=== PATIENT | female | born 1985 | race Caucasian/White ===

== ENCOUNTER → 2017-08-17 14:47 | Outpatient (CLI) | payer OTHER, SELFPAY ==
[2017-08-17 15:40] LABS: Appearance Urine UA CLEAR; Bilirubin Urine UA NEGATIVE (NEGATIVE); Color Urine UA YELLOW; Glucose Urine UA NEGATIVE (Normal); Ketones Urine UA NEGATIVE (NEGATIVE); Leukocyte Esterase Urine UA NEGATIVE (NEGATIVE); Nitrite Urine UA Negative (Negative); Occult Blood Urine UA NEGATIVE (Negative); Protein Urine UA NEGATIVE (Negative); Urobilinogen Urine UA 0.2 E.U./dL (0.2); pH Urine UA 6.5 (4.5-8.0)
[2017-08-17 15:41] LABS: Add Manual Diff / Slide Review NO; Basophils Percent Auto 0.7 % (0-2); Eosinophils Percent Auto 2.2 % (2-4); Hematocrit 41.2 % (36-46); Hemoglobin 14.3 g/dL (12.0-16.0); Lymphocytes Percent Auto 24.3 % (25-40); Mean Corpuscular HGB Conc 34.7 % (30-36); Mean Corpuscular Volume 92.2 fL (80-100); Monocytes Percent Auto 6.4 % (3-14); Neutrophils Absolute Auto 7000 /uL (3000-5900); Neutrophils Percent Auto 66.4 % (50-75); Platelet Count 245 X10^3/uL (150-400); Red Blood Cell Count 4.47 X10^6/uL (4.0-5.2); Red Cell Distribution Width 12.7 % (11.6-14.8); White Blood Cell Count 10.5 X10^3/uL (4.5-11.0)
[2017-08-17 16:43] LABS: Hepatitis B Surface Antigen NEGATIVE s/c (NEGATIVE); Rubella Antibody IgG 80.2 IU/mL (>15)
[2017-08-17 17:04] LABS: HIV 1 and 2 Antibody NEGATIVE (NEGATIVE); Hep C Virus Ab w/Reflex Quant NEGATIVE s/c (NEGATIVE)
[2017-08-21 15:33] LABS: HSV 2 IGG AB < 0.90 index (< 0.90); HSV1IGG < 0.90 index (< 0.90)
[2017-08-24 13:58] LABS: Rapid Plasma Reagin NON-REACTIVE
== END ==
PROVIDERS: Visit Provider Specialist
DX: Z34.01 Encounter for supervision of normal first pregnancy, first trimester (principal)
CPT/HCPCS: 36415; 80055; 81003; 86695; 86696; 86703; 86787; 86803; 86850; 86900; 86901; 87086

== ENCOUNTER → 2017-10-01 08:27 | Outpatient (CLI) | payer OTHER, SELFPAY | PROVIDERS: Visit Provider Specialist | DX: Z34.81 Encounter for supervision of other normal pregnancy, first trimester (principal); Z3A.12 12 weeks gestation of pregnancy | CPT/HCPCS: 36415 ==

== ENCOUNTER → 2017-11-02 08:58 | Outpatient (CLI) | payer OTHER, SELFPAY ==
[2017-11-15 09:29] LABS: AFP, Serum 52.8 ng/mL; Calc Gestational Age 16.6; Est Date Determined by NOT GIVEN; Maternal Weight 136 lbs; Mother Ethnic Origin NOT GIVEN; Number of Fetuses 1; Prev Pregnancies Down Syndrome N
== END ==
PROVIDERS: Visit Provider Specialist
DX: Z3A.16 16 weeks gestation of pregnancy (principal)
CPT/HCPCS: 36415; 82105

== ENCOUNTER → 2017-11-29 08:09 | Outpatient (CLI) | payer OTHER, SELFPAY ==
--- NOTE | 2017-11-29 08:10 | DI.US.S_ITS ---
PROCEDURE: US OB >= 14 WEEKS FETUS INDICATIONS: 20 WEEK ANATOMIC SURVEY OUTSIDE/PRIOR DATING DATA: Last menstrual period (LMP): 07/09/17. LMP-based estimated date of delivery (MERISSA): 04/15/18. First dating scan (date and location): 08/29/17. Estimated date of delivery (MERISSA) from first dating scan: 04/14/18. TECHNIQUE: Real-time scanning was performed of the fetus, with image documentation and biometric measurements. Endovaginal scanning: No COMPARISON: [facility], , OB >= 14 WEEKS FETUS, 08/29/2017, 8:22. FINDINGS: General: A single living intrauterine gestation is present. Presentation: Vertex. Placenta: Placental position is anterior, without previa. Amniotic fluid index: 15.3cm, normal range is 5-24 cm. heart rate: 132 beats per minute. Maternal cervical canal: 3.1 cm long. biometrics: Biparietal diameter: 21 weeks 2 days Head circumference: 21 weeks 6 days Abdominal circumference: 21 weeks 4 days Femur length: 21 weeks 3 days Estimated gestational age from initial scan: 20 weeks 4 days Composite gestational age from present scan: 21 weeks 4 days Estimated weight and percentile: 430 g; 90 percentile Measurement variability for biometric dating: +/- 7 days from 14 weeks to 15 weeks 6 days gestation, +/- 10 days from 16 weeks to 21 weeks 6 days gestation, +/- 2 weeks from 22 weeks to 27 weeks 6 days gestation, +/- 3 weeks for 28 weeks gestation or later. weight reference: 4500 g or EFW >90/95% is considered macrosomia or large for gestational age. EFW <10% is small for gestational age. EFW 5% or less is considered intra-uterine growth restriction. Anatomic survey: Neuro: Ventricles are non-dilated at less than 10 mm. Cisterna magna is normal at 3-11 mm. Cerebellum is normal in size and morphology. Nuchal skin fold: Normal at less than 6 mm between 14-21 weeks gestational age. Face: Nose and lips, facial profile are normal. Spine: No evidence for spina bifida. Heart: 4-chambered heart is present, with normal ventricular outflow tracts. Diaphragm: Diaphragm is intact. Stomach: Left-sided stomach is present. Kidneys: No hydronephrosis. Normal is less than 5 mm in 2nd trimester, less than 7 mm in 3rd trimester. Cord: 3-vessel cord has orthotopic insertion. Bladder: Normal in size. Extremities: All 4 extremities identified. IMPRESSION: 1. Interval growth upper limits of normal. 2. Normal anatomic survey. Dictated by: Timothy Freire [facility] Interpreted: Partha Jones MD on 11/29/2017 at 9:04 Approved by: Partha Jones M.D. on 11/29/2017 at 13:19
== END ==
PROVIDERS: Visit Provider Specialist
DX: Z36.89 Encounter for other specified antenatal screening (principal); Z3A.21 21 weeks gestation of pregnancy
CPT/HCPCS: 76811

== ENCOUNTER → 2018-01-21 12:01 | Outpatient (CLI) | payer OTHER, SELFPAY ==
[2018-01-21 15:06] LABS: Hematocrit 37.8 % (36-46); Hemoglobin 12.7 g/dL (12.0-16.0)
[2018-01-21 15:33] LABS: GTT (PREG) 1 Hour PP 50gm Dose 184 mg/dL (76-139)
== END ==
PROVIDERS: Visit Provider Specialist
DX: O09.899 Supervision of other high risk pregnancies, unspecified trimester (principal); Z3A.27 27 weeks gestation of pregnancy; Z67.91 Unspecified blood type, Rh negative
CPT/HCPCS: 36415; 82950; 85014; 85018; 86850

== ENCOUNTER → 2018-01-28 07:37 | Outpatient (CLI) | payer OTHER, SELFPAY ==
[2018-01-28 08:36] LABS: Glucose Fasting 75 mg/dL (70-100)
[2018-01-28 10:59] LABS: Glucose 2 Hour 141 mg/dL (70-140)
[2018-01-28 11:02] LABS: Glucose Tol Interpretation INTERPRETATION
[2018-01-28 12:42] LABS: Glucose 3 Hour 119 mg/dL (70-115)
[2018-01-28 21:05] LABS: Glucose 1 Hour 179 mg/dL (70-170)
== END ==
PROVIDERS: Visit Provider Specialist
DX: R73.09 Other abnormal glucose (principal)
CPT/HCPCS: 36415; 82951; 82952

== ENCOUNTER → 2018-03-22 10:15 | Outpatient (CLI) | payer OTHER, SELFPAY ==
[2018-03-23 09:20] LABS: Strep Grp B PCR NEG for Grp B Strep
== END ==
PROVIDERS: Visit Provider Specialist
DX: Z3A.36 36 weeks gestation of pregnancy (principal)
CPT/HCPCS: 87653

== ENCOUNTER 2018-04-15 13:17 | Outpatient (CLI) | payer OTHER, SELFPAY | END 2018-04-15 13:55 | disposition home or self-care (01) | LOC: LABOR 13:41 → OB 04-17 12:54 | PROVIDERS: Visit Provider Specialist | DX: Z34.03 Encounter for supervision of normal first pregnancy, third trimester (principal); Z3A.40 40 weeks gestation of pregnancy | CPT/HCPCS: 59025; G0378; G0379 ==

== ENCOUNTER 2018-04-18 18:42 | Inpatient (IN) | payer OTHER, SELFPAY ==
[2018-04-18 20:38] VITALS: BP 123/85
[2018-04-18] MEDS: DINOPROSTONE VAG (CERVIDIL) 10 MG VAG (21:00)
[2018-04-18 23:49] LABS: Add Manual Diff / Slide Review NO; Basophils Absolute Auto 100 /uL (0-100); Basophils Percent Auto 0.5 % (0-2); Eosinophils Absolute Auto 200 /uL (0-450); Eosinophils Percent Auto 1.2 % (2-4); Hematocrit 39.7 % (36-46); Hemoglobin 13.1 g/dL (12.0-16.0); Lymphocytes Absolute Auto 2200 /uL (1100-4500); Lymphocytes Percent Auto 14.6 % (25-40); Mean Corpuscular Hemoglobin 30.4 PG (26-34); Mean Corpuscular Volume 92.1 fL (80-100); Monocytes Absolute Auto 1000 /uL (0-900); Monocytes Percent Auto 6.8 % (3-14); Neutrophils Absolute Auto 11700 /uL (1500-7000); Neutrophils Percent Auto 76.9 % (50-75); Platelet Count 219 X10^3/uL (150-400); Red Blood Cell Count 4.31 X10^6/uL (4.0-5.2); Red Cell Distribution Width 13.4 % (11.6-14.8); White Blood Cell Count 15.2 X10^3/uL (4.5-11.0)
--- NOTE | 2018-04-19 07:10 | PM.OBHP.1 ---
OB HPI Date/Time Date of admission: 04/18/18 Date Patient Seen: 04/19/18 Time Patient Seen: 07:11 History of Present Condition Chief complaint: OBSERVATION : 1 Para: 0 Estimated Date of Delivery: 04/15/18 Estimated Gestational Age (weeks): 40 Narrative: Candie Newberry is a 32 year old female admitted for postdates induction Indications Indication for induction OB: post dates History of Present care: good care, initiated at week # (7), number of visits (14) and pounds weight gain (24) Dating criteria: LMP confirmed by 1st trimester US Ultrasounds: normal mid trimester US Obstetrical complications: none Medical complications: none Preadmission Labs Blood type: 0 (-) negative -: Antibody screen: negative, GBS status: negative, HBsAG: negative, HIV: negative, HSV 1: negative, HSV 2: negative and RPR/VDLR: negative -: Chlamydia screen: not detected and Gonorrhea screen: not detected -: Rubella: immune and Varicella: immune HCAB: negative PAP: Normal Cell-free DNA: Normal 1 hr GTT: 184 3 hr GTT: 1 hr (179), 2 hr (141) and 3 hr (119) Fasting blood glucose: 75 Evaluation Evaluation Baseline heart rate: 145 Variability: Moderate (11-25) monitor accelerations: Present monitor decelerations: Absent Contraction Frequency (minutes): 3 Uterine Contraction Intensity: Mild Category of Tracing: I Cervical dilation (cm): 1 Cervical effacement (%): 50 station: -1 Laboratory results: Laboratory Tests 04/18/18 04/18/18 21:00 21:00 WBC 15.2 H RBC 4.31 Hgb 13.1 Hct 39.7 MCV 92.1 MCH 30.4 MCHC 33.0 RDW 13.4 Plt Count 219 Neut % (Auto) 76.9 H Lymph % (Auto) 14.6 L [place] % (Auto) 6.8 Eos % (Auto) 1.2 L Baso % (Auto) 0.5 Neut # (Auto) 17236 H Lymph # (Auto) 2200 [place] # (Auto) 1000 H Eos # (Auto) 200 Baso # (Auto) 100 Blood Type O Negative Antibody Screen Negative PFSH Surgical History Anesthesia (Resolved) History of third molar tooth extraction (~2002) Family History Mother Age: 65 Hypertension Grandfather Diabetes mellitus Pneumonia Grandfather History of heart attack Grandmother Pneumonia Social History Smoking Status: Never smoker Family History Mother Age: 65 Hypertension Grandfather Diabetes mellitus Pneumonia Grandfather History of heart attack Grandmother Pneumonia Social History Smoking Status: Never smoker Meds Home Medications Medication Instructions Recorded Confirmed Type Mynatal 1 cap PO QDAY #0 04/09/17 04/18/18 History Allergies Allergy/AdvReac Type Severity Reaction Status Date / Time No Known Allergies Allergy Uncoded 04/18/18 23:15 Review of Systems Review of Systems No signs or symptoms of preeclampsia. Good movement. No leaking of fluid. All systems reviewed & are unremarkable except as noted in HPI and below Exam Vital Signs (past 8 hours): Blood pressure 123/85, temperature 98?, pulse of 83 Narrative Exam Narrative: HEENT exam within normal limits. Lungs are clear to auscultation percussion. Heart is regular rate and rhythm no S3-S4 or murmurs. Abdomen is gravid. is vertex. Extremities without edema and nontender. Objective Labs Result Diagrams: 04/18/18 21:00 Labs: Laboratory Results - last 24 hr 04/18/18 04/18/18 21:00 21:00 WBC 15.2 H RBC 4.31 Hgb 13.1 Hct 39.7 MCV 92.1 MCH 30.4 MCHC 33.0 RDW 13.4 Plt Count 219 Neut % (Auto) 76.9 H Lymph % (Auto) 14.6 L [place] % (Auto) 6.8 Eos % (Auto) 1.2 L Baso % (Auto) 0.5 Neut # (Auto) 20689 H Lymph # (Auto) 2200 [place] # (Auto) 1000 H Eos # (Auto) 200 Baso # (Auto) 100 Blood Type O Negative Antibody Screen Negative Assessment and Plan (1) 40 weeks gestation of : Current visit: Yes Status: Acute 40 4/7 weeks by dates admitted for postdates induction. Plan: Patient received Cervidil rather than Cytotec due to uterine irritability. She will be started on Pitocin this morning
[2018-04-19] MEDS: LACTATED RINGERS 1,000 ML 100 ML IV ×3 (08:03→18:36)
[2018-04-19] MEDS: OXYTOCIN PREMIX 30 UNIT/500 ML PLAST..BAG IV (08:28)
[2018-04-20] MEDS: miSOPROStol 200 MCG TABLET 800 MCG PR (00:25)
--- NOTE | 2018-04-20 00:50 | P.PCNOB_ITS ---
Events: Labor Induction (Postdates) Delivery date: 04/20/18 Intrapartal events: Prolonged 2nd Stage > 2.5 hours Cervical ripening method: per Cervidil protocol Induction method: per pitocin protocol Delivery monitor: external FHT and external uterine Route of delivery: L&D Laceration Description: Periurethral - 1st Degree, Perineal - 2nd Degree and Vaginal - 1st Degree Delivery repair: vicryl (3- 0) Estimated blood loss (mL): 300 Anesthesia type: Epidural Narrative: Patient arrived on Labor and delivery for induction for postdates. She received Cervidil followed by Pitocin. She received an epidural catheter for pain control. She had spontaneous rupture membranes clear fluid. She progressed to complete and pushing. heart tones category 1 to category 2 throughout labor. The patient delivered spontaneously, over an intact perineum a viable female infant was placed on the maternal abdomen. After the cord stopped pulsating the cord was clamped and cut and cord bloods obtained. Placenta delivered spontaneously, intact, with 3 vessels. Patient had a first- degree periurethral tear that did not require suturing she had a first-degree right-sided vaginal laceration that was repaired with 3 0 chromic suture. She had a second-degree midline perineal tear that was repaired with 3 0 chromic suture. Patient had continued increased bleeding despite the Pitocin so she was given 100 mg of Cytotec rectally. [place] Baby 1: gender: Female Presentation: compound (Hand next to head) position: Right Occiput Anterior Placenta delivery description: Spontaneous cord vessel description: 3 Vessels score (1 min): 9 score (5 min): 9 Plan for aftercare: Routine care
[2018-04-20] MEDS: DERMOPLAST SPRAY 20% 60 ML 1 SPRAY TOP (02:49)
[2018-04-20] MEDS: IBUPROFEN 600 MG TABLET PO ×4 (02:49→21:58)
[2018-04-20] MEDS: DOCUSATE 250 MG CAPSULE PO (08:53)
--- NOTE | 2018-04-20 18:42 | PM.OBPN.1 ---
Subjective - OB Interval history: day 1. Patient comments: no complaints baby status: nursing well Marcellus feeding status: exclusively breast feeding Narrative: Patient is doing well for 1st day She is breast-feeding. No signs or symptoms of preeclampsia. She is urinating and ambulatory. Date Patient Seen: 04/20/18 Time Patient Seen: 18:43 Exam Vital Signs (past 8 hours): Blood pressure 124/82, pulse of 87, temperature 98.2? Narrative Exam Narrative: Abdomen is soft, nontender. Uterus is firm, at U, nontender. Repair is intact. Lochia is normal. Extremities without edema nontender. Objective Labs Result Diagrams: 04/18/18 21:00 Assessment & Plan (1) 40 weeks gestation of : Status: Acute Current Visit: Yes (2) Vaginal delivery: Problem details: Normal exam Status: Acute Current Visit: Yes Time Spent With Patient Total time spent is greater than 50% in coordination of care (as documented) at patient's floor/unit and/or counseling patient: less than 15 minutes
[2018-04-20 21:58] VITALS: TEMP 36.7
[2018-04-21 04:05] VITALS: TEMP 36.7
[2018-04-21] MEDS: IBUPROFEN 600 MG TABLET PO (04:05)
[2018-04-21 06:19] LABS: Add Manual Diff / Slide Review NO; Basophils Absolute Auto 100 /uL (0-100); Basophils Percent Auto 0.6 % (0-2); Eosinophils Absolute Auto 300 /uL (0-450); Hematocrit 32.8 % (36-46); Hemoglobin 11.2 g/dL (12.0-16.0); Lymphocytes Absolute Auto 2300 /uL (1100-4500); Mean Corpuscular HGB Conc 34.3 % (30-36); Mean Corpuscular Hemoglobin 31.1 PG (26-34); Mean Corpuscular Volume 90.7 fL (80-100); Monocytes Absolute Auto 1100 /uL (0-900); Monocytes Percent Auto 6.8 % (3-14); Neutrophils Absolute Auto 12800 /uL (1500-7000); Neutrophils Percent Auto 76.6 % (50-75); Platelet Count 210 X10^3/uL (150-400); Red Blood Cell Count 3.61 X10^6/uL (4.0-5.2); Red Cell Distribution Width 13.7 % (11.6-14.8); White Blood Cell Count 16.7 X10^3/uL (4.5-11.0)
--- NOTE | 2018-04-21 10:20 | P.DS_ITS ---
Discharge Providers Date of admission: 04/18/18 18:42 Discharge Date: 04/21/18 Consults: 04/20/18 02:21 Consult to Brilliandeer Lopper Routine Comment: Discharge provider: Tia Hernandez MD Summary Date Patient Seen: 04/21/18 Time Patient Seen: 10:16 Procedures: Cervidil followed by Pitocin induction. Epidural catheter. Vaginal delivery with second-degree repair Hospital Course: Patient received Cervidil followed by Pitocin induction for postdates. She had a spontaneous vaginal delivery with repair of second-degree tear. Both and mother did well . She is breast-feeding without difficulty. No signs or symptoms of preeclampsia. She is urinating and ambulating well. Blood pressure 115/66, pulse of 79, temperature 97.6? Patient's abdomen is soft, nontender. Uterus is firm, at U, nontender. Repair is intact. Mild lochia. Extremities without edema nontender. Baby is Rh negative. She is rubella immune. Peripartum Data Infant Delivery Method: Natural Vaginal Laceration description: Perineal - 2nd Degree Procedures: Cervidil and Pitocin induction. Epidural catheter, spontaneous vaginal delivery with repair a second-degree tear complications: none Discharge Diagnosis (1) 40 weeks gestation of : Status: Acute (2) Vaginal delivery: Status: Acute Problem Details: Normal exam Time Spent with Patient Total time spent providing and/or coordinating discharge services: Objective Labs Result Diagrams: 04/21/18 06:00 Labs: Laboratory Results - last 24 hr 04/21/18 06:00 WBC 16.7 H RBC 3.61 L Hgb 11.2 L Hct 32.8 L MCV 90.7 MCH 31.1 MCHC 34.3 RDW 13.7 Plt Count 210 Neut % (Auto) 76.6 H Lymph % (Auto) 14.0 L [place] % (Auto) 6.8 Eos % (Auto) 2.0 Baso % (Auto) 0.6 Neut # (Auto) 79604 H Lymph # (Auto) 2300 [place] # (Auto) 1100 H Eos # (Auto) 300 Baso # (Auto) 100 Discharge Plan Discharge Plan Patient Disposition: Home Discharge Med Rec/Prescriptions Prescriptions: Continued Mynatal 1 EACH capsule 1 cap PO QDAY Qty: 0 RF: 0 Follow up/Referrals: Tia Hernandez MD [Physician] - 1 Month Provider Discharge Instructions Diet: Regular Activity: Nothing in vagina for 4 weeks Skin/Wound/Dressing Care Report to your healthcare provider any signs of infection, such as:: chills, fever and increased pain Discharge Data Attending Provider: Tia Hernandez Admit Date/Time: 04/18/18 18:42
[2018-04-21 10:23] VITALS: BP 123/85; PULSE 88; RESP 18; TEMP 36.7
== END 2018-04-21 13:00 | disposition home or self-care (01) | DRG 807 ==
PROVIDERS: Admitting Provider Specialist; Visit Provider Specialist
DX: O48.0 Post-term pregnancy (principal); Z37.0 Single live birth; O70.0 First degree perineal laceration during delivery; Z3A.40 40 weeks gestation of pregnancy; O63.1 Prolonged second stage (of labor)
CPT/HCPCS: 01967; 36415; 59050; 59200; 59400; 85025; 86850; 86900; 86901; G0379; J2590; S0191

== ENCOUNTER → 2020-09-14 13:08 | Outpatient (CLI) | payer OTHER, SELFPAY ==
--- NOTE | 2020-09-14 13:10 | DI.US.S_ITS ---
PROCEDURE: US PELVIC COMPLETE INDICATIONS: CHECK INTRAUTERINE DEVICE PLACEMENT TECHNIQUE: Real-time scanning was performed of the pelvic organs, with image documentation. Additional endovaginal scanning was necessary due to incomplete visualization of the adnexal and endometrial structures by transabdominal scanning. COMPARISON: None. FINDINGS: Uterus: Uterus is normal in size at 7.9 x 6.0 x 4.4 cm. The endometrium measures 4.6 mm in combined thickness. Left fundal intramural fibroid measuring 1 1.3 cm. IUD in expected position. Ovaries: Right ovary measures 2.7 x 2.5 x 1.1 cm and the left 3.3 x 2.5 x 2.2 cm. Probable hemorrhagic left ovarian cyst measuring 2.6 x 2.0 cm. Other: No pathologic free abdominal or pelvic fluid. IMPRESSION: 1. Small left hemorrhagic ovarian cyst. 2. 13 mm intramural fibroid. 3. Intrauterine device in expected position. Dictated by: Timothy CAUSEY Interpreted: Partha Jones MD on 09/14/2020 at 14:58 Transcribed by: RADHA on 09/14/2020 at 15:01 Approved by: Partha Jones M.D. on 09/14/2020 at 16:36
== END ==
PROVIDERS: Referring Provider Specialist; Visit Provider Specialist
DX: N93.9 Abnormal uterine and vaginal bleeding, unspecified (principal); D25.1 Intramural leiomyoma of uterus; N83.202 Unspecified ovarian cyst, left side; Z97.5 Presence of (intrauterine) contraceptive device
CPT/HCPCS: 76830; 76856